=== PATIENT | female | born 1960 | race Caucasian/White ===

== ENCOUNTER → 2016-05-25 | Day surgery (SDC) | payer BC ==
[~2016-05-25] MED LIST: IV RINGERS,LACTATED 1000ML 1,000 ML IV SCH; LIDOCAINE 2% PF Vial for OR 5 ML VIAL. ONE; PROPOFOL 40 ML IV ONE
[2016-05-25 08:45] VITALS: BP 116/70
== END | disposition home or self-care (01) ==
LOC: ENDOS 06:49
PROVIDERS: ATTEND Internal Medicine Gastroenterology
DX: Z12.11 Encounter for screening for malignant neoplasm of colon (principal); K57.30 Diverticulosis of large intestine without perforation or abscess without bleeding; K64.0 First degree hemorrhoids; E78.00 Pure hypercholesterolemia, unspecified; K21.9 Gastro-esophageal reflux disease without esophagitis; M19.90 Unspecified osteoarthritis, unspecified site; F41.9 Anxiety disorder, unspecified; Z87.39 Personal history of other diseases of the musculoskeletal system and connective tissue; Z90.710 Acquired absence of both cervix and uterus
CPT/HCPCS: 45378; J2704

== ENCOUNTER → 2018-01-17 | Day surgery (SDC) | payer BC ==
[~2018-01-17] MED LIST changes: +HYDR-2758 PO; -LIDOCAINE 2% PF Vial for OR 5 ML VIAL. ONE; +LISI-338 PO; +OXYC-323 PO; +PROPOFOL 20 ML IV ONE; -PROPOFOL 40 ML IV ONE; +SUCR1TAB35 PO
[2018-01-17 13:23] VITALS: BP 149/69
== END | disposition home or self-care (01) ==
LOC: SURG 11:48
PROVIDERS: ATTEND Surgery
DX: K44.9 Diaphragmatic hernia without obstruction or gangrene (principal); Z90.710 Acquired absence of both cervix and uterus; Z98.890 Other specified postprocedural states; Z79.899 Other long term (current) drug therapy
CPT/HCPCS: 43235; 88305; 88342; J2704

== ENCOUNTER 2018-01-23 08:51 | Day surgery (SDC) | payer BC ==
[~2018-01-23 08:51] MED LIST changes: +HYDROmorphone 2 MG/ML VIAL IV PRN; +LIDOCAINE 1% PF 2 ML VIAL. ID PRN; +MORPHINE SULFATE 2 MG/ML VIAL. IV PRN; +ONDANSETRON PF 4 MG/2 ML VIAL. IV PRN; -OXYC-323 PO; +PROCHLORPERAZINE 10 MG/2 ML VIAL. IV PRN; -PROPOFOL 20 ML IV ONE; +fentaNYL PF VIAL 100 MCG/2 ML VIAL IV PRN
[2018-01-23] MEDS ORDERED: BUPIVAC MPF-EPI 0.5%-1:200000 30 ML VIAL. ONE (08:58)
[2018-01-23] MEDS ORDERED: IOHEXOL 300 MG/ML 100ML VIAL. ONE (08:58)
[2018-01-23] MEDS ORDERED: SURGICEL HEMOSTAT 4X8 EACH. ONE (08:58)
[2018-01-23] MEDS ORDERED: FAMOTIDINE 20 MG/2 ML VIAL ONE (09:54)
[2018-01-23] MEDS ORDERED: ONDANSETRON PF 4 MG/2 ML VIAL. ONE (09:54)
[2018-01-23] MEDS ORDERED: LIDOCAINE 2% PF Vial for OR 5 ML VIAL. ONE (09:54)
[2018-01-23] MEDS ORDERED: fentaNYL PF VIAL 100 MCG/2 ML VIAL ONE ×3 (09:54→11:53)
[2018-01-23] MEDS ORDERED: ROCURONIUM 50 MG/5 ML VIAL. ONE (09:54)
[2018-01-23] MEDS ORDERED: MIDAZOLAM HCL/PF 2 MG/2 ML VIAL. ONE (09:54)
[2018-01-23] MEDS ORDERED: DEXAMETHASONE SOD PHOS 20 MG/5 ML VIAL. ONE (09:54)
[2018-01-23] MEDS ORDERED: PROPOFOL 20 ML IV ONE (09:54)
[2018-01-23] MEDS ORDERED: NEOSTIGMINE METHYLSULFATE 5 MG/5 ML SYRINGE. ONE (10:44)
[2018-01-23] MEDS ORDERED: GLYCOPYRROLATE 1 MG/5 ML VIAL. ONE (10:44)
[2018-01-23] MEDS ORDERED: SEVOFLURANE 31 TO 60 MINUTES. IH ONE (10:49)
--- NOTE | 2018-01-23 10:59 | PDOC4 ---
Operative Note Operative Note Date: 01/23/2018 Preoperative diagnosis: Chronic cholecystitis cholelithiasis Postoperative diagnosis: Same Procedure: Laparoscopic cholecystectomy Surgeon: Hernán Specimen: Gallbladder Dictation: Patient is a 57-year-old female is had right upper quadrant and epigastric abdominal pain with postprandial nausea ultrasound showing gallstones. The procedure of laparoscopic cholecystectomy was explained to the patient detail was benefits were also discussed including bleeding infection alternatives to this procedure also discussed with patient seemed understanding gave both verbal and written consent had procedure performed. Patient was taken to the operating room placed in supine position general anesthesia was initiated once patient was asleep and intubated her abdomen was prepped and draped usual sterile fashion using ChloraPrep. An area at the umbilicus was injected with quarter percent Marcaine with epinephrine and incision was made lead blade scalpel varies needle was placed within the abdomen creating pneumoperitoneum once this complete 11 mm port was placed and 5 mm camera was placed within the abdomen which was inspected no other at maladies were noted. A 5 mm port was placed in the epigastrium a 5 OmegaPort was placed in the right lateral abdomen and a 5 mm port was placed in the right mid abdomen all under direct visualization. The dome of the gallbladder's grasped retracted cephalad the infundibulum of the gallbladder's grasped retracted laterally exposing the triangle adherent tissues the triangle are taken down bluntly dissection exposing the cystic duct and cystic artery both were doubly clipped and transected the gallbladder was taken off the liver with hook electrocautery placed in Endo Catch bag and removed from the umbilicus right upper quadrant was irrigated and suctioned dry hemostasis didn't be appropriate and the pneumoperitoneum was reduced all ports removed fascial defect at the umbilicus closed [id number] 0 Vicryl suture and skin was approximated all port sites 4 septic or Monocryl Mastisol Steri-Strips and Band-Aids were applied as dressings. Room taken recovery in stable condition all sponge instrument needle counts listed as correct estimate blood loss 10 mL ANJEL PÉREZ MD Jan 23, 2018 10:59
--- NOTE | 2018-01-23 11:02 | DISCH ---
DISCHARGE INSTRUCTIONS Condition on Discharge Condition on Discharge: Stable Activity After Discharge Activity Instructions for Disc: Avoid exertion Other activity instructions: no lifting more than 20 pounds for 2 weeks Diet after Discharge Diet after Discharge: Low Fat Wound Incision Care Other wound/incision instructi: May shower in 24 hours Contacting the after DC Call your doctor for: If your condition worsens Follow-Up Follow up with: Dr. Pérez in 2 weeks ANJEL PÉREZ MD Jan 23, 2018 11:02
[2018-01-23] MEDS: fentaNYL PF VIAL 100 MCG/2 ML VIAL IV PRN ×4 (11:27→12:22)
[2018-01-23] MEDS ORDERED: OXYC-323 PO (11:33)
[2018-01-23] MEDS ORDERED: oxyCODONE/APAP 5/325 1 TAB TABLET PO ONE ×2 (12:00)
[2018-01-23] MEDS ORDERED: LIDOCAINE 2% TOPICAL JELLY 5GM TUBE. TP ONE (12:11)
[2018-01-23 12:34] VITALS: BP 120/57
--- NOTE | 2018-01-27 15:07 | PATHOLOGY ---
[facility] Accession Number: [id number] . 01 Material submitted: . GALLBLADDER . 01 Clinical history: . Cholelithiasis . 02 Diagnosis: Gallbladder, cholecystectomy: - Cholelithiasis. - Cholesterolosis. - Chronic cholecystitis. [facility]/01/27/2018 . 02 Comment: There is no evidence of malignancy. (JPM:[facility] 01/27/2018) . 02 Electronically signed: . Mario Marques MD, Pathologist NPI- [id number] . 01 Gross description: . The specimen is received in formalin, labeled "Lakia Carrillo, gallbladder". Received is an intact gallbladder measuring 6.7 x 2.8 x 2.8 cm in greatest dimensions displaying bile-stained serosal surfaces. Opening the gallbladder reveals a velvety, bile-stained mucosa with mild, diffuse cholesterolosis with a gallbladder wall thickness of 0.1 cm. A single yellow, nodular calculus is present, and no masses or lesions are noted grossly. Informatics Analyst sections, to include the proximal margin, are submitted in cassette A1. ([facility]; 01/24/2018) QAC/QAC . 02 Pathologist provided ICD-10: K80.10, K82.4 . 02 CPT . 059279 Specimen Comment: A courtesy copy of this report has been sent to Specimen Comment: [phone], . Specimen Comment: Report sent to / DR BUNN [facility]formed [facility]: [facility] [address], [place] [id number] MD Chaitanya Leggett MD Phone: [phone] [facility]: [facility] [address], [place] [id number] MD Mario Marques MD Phone: [phone]
== END 2018-01-23 13:20 | disposition home or self-care (01) ==
LOC: SURG 08:51
PROVIDERS: ATTEND Surgery
DX: K80.10 Calculus of gallbladder with chronic cholecystitis without obstruction (principal); Z90.710 Acquired absence of both cervix and uterus; Z79.899 Other long term (current) drug therapy; Z98.890 Other specified postprocedural states
CPT/HCPCS: 47562; A7015; J0690; J1100; J2001; J2250; J2405; J2704; J2710; J3010; J3490; J7030; J7120; 88304; Q9967